=== PATIENT | male | born 1955 | race Caucasian/White ===

== ENCOUNTER 2021-03-27 13:57 | Emergency (ER) | payer OTHER ==
[~2021-03-27] VITALS: Ht 177.8 cm; Wt 104.3 kg
[2021-03-27 15:19] VITALS: BP 118/44
== END 2021-03-27 16:10 ==
LOC: ER 13:57
DX: R47.89 Other speech disturbances (principal); Z20.822 Contact with and (suspected) exposure to COVID-19; Z88.5 Allergy status to narcotic agent; Z88.1 Allergy status to other antibiotic agents; F22 Delusional disorders; F31.9 Bipolar disorder, unspecified

== ENCOUNTER 2021-03-27 15:07 | Inpatient (IN) | payer OTHER ==
[~2021-03-27] VITALS: Ht 188 cm; Wt 104.3 kg
[2021-03-27 16:50] VITALS: BP 134/72
--- NOTE | 2021-03-27 17:39 | NUR ---
ARRIVES TO FLOOR AT 1615 FROM ER A 65 YEAR OLD MALE. ARRIVES FROM [facility] [address] WHERE HE HAS BEEN HOSPITALIZED ON NEURO FLOOR WITH AMS. 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 DENIES SI/SH/HI. DENIES DISTURBANCE OF SLEEP OR APPETITE. GAIT IS UNSTEADY BUT REFUSES TO USE ROLLER WALKER OR RIDE IN WC DESPITE BEING ASKED TO ALLOW STAFF TO ASSIST UNTIL IS STRONGER AND GAIT CLOSER TO BASELINE-STATES "I WILL BEFORE I USE ONE OF THOSE-I HAVE TO START REHAB SOON-I NEED EXERCISE"
[2021-03-27 19:12] VITALS: BP 127/44
[2021-03-27 20:00] VITALS: BP 127/44
--- NOTE | 2021-03-28 02:37 | NUR ---
PATIENT CARE WAS RESUMED AT 1900. HE IS ALERT AND ORIENTED.HE DENIES ANY PAINS,SI/AVH/HI. HE IS ABLE TO VERABLIZE HIS NEEDS. VERY HYPER VERBAL AND SOCIABLE WITH STAFF. HE TOOK HIS MEDS WHOLE AND AMBULATES WITH A STEADY GAIT. HE SPOKE WITH A FRIEND OVER THE PHONE THIS PM. 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 HE LIKES TO TALK WITH THE STAFF. "MY THINK I NEED SOME CARE AND SHE BROUGHT ME HERE". PATIENT SAID HE SLEEPS WITH C-PAP. NO ORDER INPLACE AT THIS TIME. CALL TO DR. BRODY SHE ORDER TO MONITOR SAT THROUGH THE NIGHT AND NOTIFY HERIF < 92%. PATINET SAT IS AT 98-100% AT THIS TIME. CONTINUE TO MONITOR. [id number] CHECK IS ONGOING. BED IS LOW, ALARM ON,BED IS LOCKED YELLOW SOCK ARE ON.PT EDUCATED ON FALL AND SAFETY.
[2021-03-28 06:06] LABS: CHOLESTEROL 152 mg/dL (<200); HDL CHOLESTEROL 35 mg/dL (>40); LDL CHOLESTEROL 102 mg/dL (<100); TC:HDL 4.3 Ratio (Not establshd); TRIGLYCERIDE 76 mg/dL (<150); VLDL 15 mg/dL (<40)
[2021-03-28 06:14] LABS: SERUM ASSESSMENT Clear
[2021-03-28 09:23] VITALS: BP 122/48
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
--- NOTE | 2021-03-28 14:16 | NUR ---
Assumed pt care at 0700. pt was in his room resting. ASSESSMENTS COMPLETED, VSS. TOOK MEDS WHOLE, NO DIFFICULTY NOTED. Denies si/hi, denies pain at this time. Inappropriate with staff. calm and compliant with care and meds admin. ambulates with a steady gait. make need known to staffs. No sign of acute distress noted upon assessments. Pt stated his goal was to entertain other pt. AT this time pt is in the day room. will continue to monitor.
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
--- NOTE | 2021-03-28 16:11 | NUR ---
MANDY was able to speak with Kat, . Kat stated she was not the Pt's DPOA and the Pt does not have a DPOA at this time. Kat stated the Pt had no history of major mental illness and that the Pt changed after a heart attack in Oct 2020. MANDY did set up a family meeting for 04/02/2021 @ 11am. MANDY will continue to follow.
[2021-03-28 19:01] VITALS: BP 103/33
[2021-03-28 20:00] VITALS: BP 105/54
[2021-03-29 00:06] LABS: GLYCOHEMOGLOBIN (HGB A1C) 5.5 % (4.8-5.6)
--- NOTE | 2021-03-29 04:43 | NUR ---
PATINET CARE WAS RESUMED AT 1900. PT WAS SITTING IN THE DAY AREA WITH OTHER PATIENTS AND WAS VERBALLY ENTERTAINING THEM. HE DENIES ANY PAINS AND DISCOMFORT.ABLE TO VERBALISE NEEDS. HE TALKED ABOUT C-PAP AND OTHER IN PLACE AND TO MONITOR Q 12MINS PER UNIT PROTOCOL. HE TOOK HIS MEDS WHOLE. FALL PROTOCOL IN PLACE, YELLOW SOCKS, BED IS LOW, ALARM ON, AND LOCKED. HE DEINES PAINS/ SI/AVH/HI. NO BEHAVIOUR NOTED THIS SHIFT CONT CARE.
--- NOTE | 2021-03-29 09:17 | NUR ---
REMAINS HYPERVERBAL-CIRCUMSTANTIAL. NEEDS REMINDERS/QUEING WHEN INTERACTING WITH PEERS TO NOT MAKE SEXUAL COMMENTS/REMARKS. CONTINUES GRANDIOSE MAKING STATEMENTS THAT HYIS FAMILY IS DIRECT DECENDENTS OF [employer],HE HAS SUPERB HUNTING.TRACKING SKILLS D/T "SUPER" SENSE OF SMELL AND HEARING
[2021-03-29 09:22] VITALS: BP 92/48
--- NOTE | 2021-03-29 14:16 | NUR ---
WENT TO ROOM AT APPROX. 1200 STATING HE IS "MAD" BUT DOES NOT WANT TO TALK ABOUT WHY. REFUSED LUNCH-DID APPROACH THIS RN IN ANOTHER PT ROOM AT APPROX [address] THE [address] BE CALLED "I NEED TO TALK TO HIM IMMEDIATLY AND I WANT MY PERSONAL EFFECTS BROUGHT TO ME-" DID AGREE TO STAY TO TALK TO MD BUT CONTINUES TO HAVE ANGRY FACIAL EXPRESSION. REFUSES TO SPEAK FURTHER WITHT THIS RN "YOU CAN'T GET ME OUT OF HERE"
[2021-03-29 20:00] VITALS: BP 130/53
[2021-03-29 20:08] VITALS: BP 130/53
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
--- NOTE | 2021-03-30 03:16 | NUR ---
PATIENT CARE WAS RESUMMED AT 1900.HE WAS IN [facility] ROOM CALM AND CO-OPERATIVE WITH CARE. ALERT AND ORIENTED. LUNGS ARE CLEAR BS ACTIVE X4 QUADS. HE IS ABLE TO VERBALIZE NEEDS SO NEEDS. HE TOOK HIS MEDS WHOLE AND SLEEPING WITH IS C-PAP. HE DENIES PAINS, SI/ AVH/HI. NO BEHAVOUR NOTED THIS SHIFT. BED IS LOW, LOCK AND ALARMED. Q 12MINUTES CHECK IS ONGOING . CONTINUE CARE.
--- NOTE | 2021-03-30 06:00 | NUR ---
WENT TO CHECK ON PATIENT TO SEE IF HE WAS WEARING HIS CPAP. HE WAS SITTING IN THE DARK IN THE CHAIR IN HIS ROOM. THE CPAP WAS NOT ON AND THERE WAS NO SITTER IN THE ROOM. I ASKED THE NURSE IF WE WERE GOING TO GET A SITTER SO PATIENT COULD BE PLACED ON MACHINE. RITU SHEEHAN STATED THAT THEY ARE INSTITUTING 12 MINUTE CHECKS IF PATIENT WAS ON BIPAP. SAID HE WAS SELF SUFFICIENT- AND WOULD CALL IF THEY NEEDED ANYTHING.
[2021-03-30 09:01] VITALS: BP 87/63
--- NOTE | 2021-03-30 10:00 | NUR ---
HYPERVERBAL/HYPERSEXUAL THIS AM. DOES RESPOND TO REDIRECT FROM NURSING STAFF AND EXPRESSES FEELING REMORSEFUL TEARFUL X1 WHEN SPEAKING ABOUT MISSING FATHERS DAY WITH FAMILY.
[2021-03-30 19:36] VITALS: BP 116/40
--- NOTE | 2021-03-30 23:27 | NUR ---
ASSUMED CARE OF PATIENT AT 1900. PATIENT STANDING IN NUÑEZ REQUESTING TO SPEAK TO THE "NEXT ONE UP". PATIENT IS A&OX3, NO S/S OF DISTRESS OR DISCOMFORT. DENIES AVH, DEPRESSION, SI/HI. 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 HE SEEMS VERY PROUD OF THIS. STATES HE IS UNHAPPY IN HIS MARRIAGE. C/O 5/10 HEADACHE PAIN, GIVEN PRN TYLENOL. ASLEEP UPON REASSESSMENT. WILL CONTINUE TO MONIT.
[2021-03-31 09:29] VITALS: BP 144/45
--- NOTE | 2021-03-31 12:44 | NUR ---
Assumed pt care at 0700. pt was in the day room resting. pt was alert and oriented x4. Assessments completed,vss. pt took meds whole, no difficulty noted. Ambulates with a steady gait. COOPERATIVE with care. Denies si/hi. denies pain at this time. PT goal was to find escape plan to get out of the hospital. No difficulty noted upon assessments. AT this time pt is in the day room socializing. Make needs known to staff. Continent of bowel and bladder. Will continue to monitor pt.
[2021-03-31 19:13] VITALS: BP 127/39
--- NOTE | 2021-03-31 23:46 | NUR ---
ASSUMED PATIENT CARE AT APPROX 1900. PATIENT A&OX4, NO S/S OF DISTRESS OR DISCOMFORT. PATIENT CAN BE SARCASTIC AT TIMES, AND SOMETIMES IT IS DIFFICULT TO KNOW IF HE IS JOKING OR SERIOUS. FOR INSTANCE, PATIENT HAS OWN CPAP MACHINE. IT WAS SET UP IN HIS ROOM AND HE PRECEEDED TO GIVE THIS OUTSIDE INSTALLER APPRENTICE AND ANOTHER RN A "LESSON" ON HOW TO USE IT. OVER AN HOUR LATER HE ASKED THE 2 RNS BACK IN HIS ROOM "GIVE A LESSON ON INCREASING THE PRESSURE". HE WAS NOT CLEAR OF WHAT HE WAS ASKING, AND IT WAS DECIDED TO CALL RESPIRATORY TO HELP WITH THE SETTINGS ON THE CPAP. RESPIRATORY CAME AND THE PATIENT TURNED RT AWAY STATING HE DID NOT NEED THEM TO HELP HIM, HE KNOWS HOW TO WORK THE MACHINE. PATIENT CURRENTLY IN ROOM LYING DOWN. AMBULATES WITH SLOW STEADY GAIT, GOOD EYE CONTACT, USES SARCASM AND JOKES LIBERALLY. MAKES COMMENTS ABOUT HIS MARRIAGE OF 43 YEARS BEING OVER. WILL CONTINUE TO MONITOR.
[2021-04-01 10:00] VITALS: BP 120/45
[2021-04-01 19:15] VITALS: BP 120/41
[2021-04-01 21:04] VITALS: BP 120/41
--- NOTE | 2021-04-02 00:46 | NUR ---
PATIENT CARE RESUMED AT 1900. PATIENT A&OX4, TEARFUL THIS EVENING SPEAKING ABOUT SEEING ANOTHER PATIENT AND HIS INTERACT AND STATES IT "IS A LOVE I'LL NEVER HAVE". SOMNOLESCENT REGARDING OWN MARRIAGE. TOOK MEDS WHOLE WITHOUT DIFFICULTY. WILL CONTINUE TO MONITOR.
[2021-04-02 10:13] VITALS: BP 120/41
--- NOTE | 2021-04-02 12:09 | NUR ---
Assumed pt care at 0700. pt was in his room resting. Assessments completed, vss. Pt was alert and oriented x4. ACTIVE BOWEL sound. pt denies si/hi. denies pain at this time. Took meds whole, no difficulty noted. ambulates with a steady gait. calm and cooperative with care. No sign of acute distress noted upon assessments. AT this time pt is in the day room eating lunch. will continue to monitor.
--- NOTE | 2021-04-02 17:51 | NUR ---
MANDY and Dr. Ochoa participated in an in-person family meeting with Anne. Pt later joined the meeting. Medication was discussed. Pt is in agreement with starting an antipsychotic. Pt ETOH abuse was also discussed. Dr. Ochoa provided education on alchol abuse and dementia. Pt expressed an understanding of the importance of not drinking. However Pt does have a long history with alchol abuse. Pt stated he has not drank in 2 weeks. MANDY discussed the importance of follow up with psychiatric services after discharge from the hospital. MANDY team will continue to follow.
[2021-04-02 19:56] VITALS: BP 102/42
--- NOTE | 2021-04-03 05:23 | NUR ---
04-02-21 CARE TRANSFERRED 1899 OBSERVED PT WALKING IN HALLWAY. LATER PT AAOX4, VSS, RR EVEN AND NONLABORED ON RA, PT DENIES PAIN AND SI/HI. PT PRESENTS PLESANT, CALM AND COOPERTIVE THROUGHOUR NURSING ASSESSMENT. ZERO S/S OF ACUTE DISTRESS NOTED, PT WILL CONTINUE TO BE MONITOR PER [facility] PROTOCOL.
--- NOTE | 2021-04-03 07:52 | NUR ---
RT PROGRESS NOTE- Jimmy has been an active participation in both the milieu and recreation therapy groups since his admission to the unit. Jimmy is very social and remains hyperverbal in his socialization. He continues to display grandiose thinking and always replies that he is "perfect!!!" when asked how he is doing. Redirection to not speak over other patients is often required during group discussions. Overall patient has made slow progress towards goals. INSURANCE LICENSING SUPERVISOR will continue to encourage pts social appropriateness in group as well as improved impulsivity.
[2021-04-03 09:18] VITALS: BP 113/32
--- NOTE | 2021-04-03 11:01 | NUR ---
followup: Remains on SBH. Eating 80-100% of meals. No new wt. Possible severe wt loss hx stated by pt of 80 lb but unable to confirm this. Ambulates. On thiamine, B12 supplementation. Low nutrition risk at this time.
[2021-04-03 12:21] VITALS: BP 130/78
[2021-04-03 12:25] LABS: URINE BLOOD 1+ (Negative); URINE CLARITY CLEAR; URINE GLUCOSE-RANDOM* NEGATIVE (Negative); URINE KETONES TRACE (Negative); URINE LEUKOCYTES-REFLEX NEGATIVE (Negative); URINE NITRITE-REFLEX NEGATIVE (Negative); URINE PROTEIN (DIPSTICK) NEGATIVE (Negative); URINE SPECIFIC GRAVITY 1.025 (1.005-1.035)
[2021-04-03 12:27] LABS: ICTOTEST (BILI CONFIRMATORY) Negative (Negative); URINE BILIRUBIN NEGATIVE (Negative); URINE COLOR AMBER
[2021-04-03 12:55] LABS: CASTS None Seen /LPF (None Seen); MUCUS >6 Heavy strn/LPF (None Seen); SQUAMOUS 0-3 Few /LPF (0-3)
[2021-04-03 12:56] LABS: BACTERIA-REFLEX 1-9 Few /HPF (None Seen); CALCIUM OXALATE 0-3 Few /LPF (None Seen); URINE RBC 3-10 Few /HPF (NONE SEEN); URINE WBC-REFLEX 0-5 Rare /HPF (0-5)
--- NOTE | 2021-04-03 13:39 | NUR ---
1340 RESUMMED CARE FROM OVERNIGHT SHIFT THIS AM, PATIENT SITTING IN DAY ROOM QUIET. PATIENT ATE BREAKFAST TOOK MEDICATION WITHOUT INCIDENCE; PATIENT DENIES SI/HI/AH/VH AT PRESENT. PATIENT ALERT ORIENTED TIMES 4 PATIENTS ABDOMEN SOFT BOWEL SOUNDS PRESENT. PATIENTS LUNGS CLEAR PATIENTS PATIENT PARTICIPATES IN GROUPS. I COLLECTED A URINALYSIS ON THE PATIENT THIS AM WILL CONTINUE TO MONITOR PATIENT FOR SAFETY AND BEHAVIORS.
[2021-04-03 19:27] VITALS: BP 107/44
--- NOTE | 2021-04-03 23:00 | NUR ---
04-03-21 CARE TRANSFERRED 1899. LATER PT AAOX4, VSS, RR EVEN AND NONLABORED ON RA. PT DENIES SI/HI AND PAIN. ZERO S/S OF ACUTE DISTRESS NOTED, PT WILL CONTINUE TO BE MONITOR PER [facility] PROTOCOL
[2021-04-04 11:32] VITALS: BP 107/45
--- NOTE | 2021-04-04 14:39 | NUR ---
Alert and orientated X4. Denies SI/HI. Some inappropriate language/comments at table. Calm, cooperative and conversive. Breath sounds clear. Reg, diminished HR auscultated. Color pink with brisk capillary refill and palpable peripheral pulses. Minimal edema in feet. Pacemaker palpated in L upper chest. Independent with voiding. States he had BM this AM. Active bowel sounds over soft, rounded abdomen. Ambulates with regular, steady gait.
--- NOTE | 2021-04-04 15:04 | NUR ---
MANDY and Dr. Ochoa called Carolina concerning the Pt's discharge. Carolina informed the Pt could not return to her home. Also that the Pt was unsafe to be around his . Carolina felt the Pt should stay in the hospital. Dr. Ochoa and MANDY educated on insurance and hospital critiria. During this hospital stay Pt has denied SI/HI thoughts. Carolina asked that we speak to the Pt's . MANDY called and spoke with Kat concerning the matter. MANDY informed Kat of the plan for discharge and the intake appointment for PHP with [facility]. Kat expressed she was okay with the Pt returning home. Kat stated she would be able to take the Pt to his intake appointment. Pt will d/c 04/05/2021 @0900 home. Pt has an intake appointment with [facility] for PHP on 04/05/2021 @1030.
[2021-04-04 19:40] VITALS: BP 103/33
[2021-04-04 20:30] VITALS: BP 104/58
--- NOTE | 2021-04-05 04:11 | NUR ---
04-04-21 CARE TRANSFERRED 1914 OBSERVED PT SITTING IN DAY ROOM. LATER PT AAOX4, VSS, RR EVEN AND NONLABORED ON RA, PT DENIES SI/HI AND PAIN. PT PRESENTS PLESANT, HAPPY AND COOPERATIVE. PT REPORTS HE LOOKING FORWARD TO GO HOME TOMORROW. ZERO S/S OF ACUTE DISTRESS NOTED, PT WILL CONTINUE TO BE MONITOR PER [facility] PROTOCOL.
[2021-04-05] MEDS ORDERED: ELIQUIS5 MG PO (08:48)
[2021-04-05] MEDS ORDERED: CLOPIDOGREL75 MG PO (08:48)
[2021-04-05] MEDS ORDERED: LIPITOR40 MG PO (08:49)
[2021-04-05] MEDS ORDERED: PACERONE 200 M200 M1 PO (08:49)
[2021-04-05] MEDS ORDERED: COREG6.25 MG PO (08:50)
[2021-04-05] MEDS ORDERED: DIVALPROEX SOD500 M1 PO (08:51)
[2021-04-05] MEDS ORDERED: LISINOPRIL5 MG PO (08:51)
[2021-04-05] MEDS ORDERED: POTASSIUM CITRA5 MEQ PO (08:52)
[2021-04-05] MEDS ORDERED: LATUDA20 MG PO (08:52)
[2021-04-05] MEDS ORDERED: PROTONIX40 M2 PO (08:53)
[2021-04-05] MEDS ORDERED: MELATONIN3 MG PO (08:54)
[2021-04-05 09:11] VITALS: BP 118/41
--- NOTE | 2021-04-05 09:40 | NUR ---
Alert and orientated X4. States he is ready to go home and enjoy the rest of his life. Denies SI/HI. Verbalizes understanding of discharge instructions. Breath sounds clear. Reg HR auscultated. Color pink with brisk capillary refill and palpable peripheral pulses. Minimal edema in lower extremities. Independent with voiding. Active bowel sounds over soft, rounded abdomen. States he had BM this AM. Ambulates with shuffling, steady gait. Discharged with daughter and staff SILO TENDER with belongings and CPAP. No s/o distress.
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
== END 2021-04-05 09:34 | disposition home or self-care (01) | DRG 885 ==
LOC: SBH 15:07
PROVIDERS: ADMIT Psychiatry & Neurology Psychiatry; ATTEND Psychiatry & Neurology Psychiatry
DX: F31.9 Bipolar disorder, unspecified (principal); F23 Brief psychotic disorder; F10.21 Alcohol dependence, in remission; I25.10 Atherosclerotic heart disease of native coronary artery without angina pectoris; I10 Essential (primary) hypertension; E78.5 Hyperlipidemia, unspecified; I95.9 Hypotension, unspecified; I48.91 Unspecified atrial fibrillation; F41.9 Anxiety disorder, unspecified; Z95.5 Presence of coronary angioplasty implant and graft; Z95.0 Presence of cardiac pacemaker; Z86.73 Personal history of transient ischemic attack (TIA), and cerebral infarction without residual deficits; Z95.1 Presence of aortocoronary bypass graft
CPT/HCPCS: 10880